=== PATIENT | male | born 1980 | race Two or more races ===

== ENCOUNTER 2019-12-03 23:31 | Emergency (ER) | payer SELFPAY ==
[~2019-12-03] VITALS: Ht 167.6 cm; Wt 73.0 kg
[2019-12-04] MEDS ORDERED: HYDROCODONE/ACETAMINOPHEN 5/325MG TABLET PO ONE (00:30)
[2019-12-04 00:36] VITALS: BP 131/84
== END 2019-12-04 01:45 | disposition home or self-care (01) ==
LOC: ER 23:31
DX: K02.9 Dental caries, unspecified (principal); R03.0 Elevated blood-pressure reading, without diagnosis of hypertension
CPT/HCPCS: 99283